=== PATIENT | female | born 1945 ===

== ENCOUNTER 2016-05-15 08:48 | Inpatient (IN) | payer MEDICARE ==
[2016-05-14 07:23] VITALS: BMI 25.0
[2016-05-15] MEDS ORDERED: Lidocaine 2% w Epi 1:100,000 Inj IJ ONE ×2 (11:36→13:41)
[2016-05-15] MEDS ORDERED: Midazolam 2 MG/2 ML VIAL ONE (11:53)
[2016-05-15] MEDS ORDERED: Etomidate 20 mg/10ml Inj IV ONE (11:54)
[2016-05-15] MEDS ORDERED: Neostigmine Methylsulfate 2 MG/2 ML ML IV ONE (11:54)
[2016-05-15] MEDS ORDERED: Rocuronium 10 mg/ml (5 ml) ONE (11:54)
[2016-05-15] MEDS ORDERED: Succinylcholine 200 mg/10 ml Inj IV ONE (11:54)
[2016-05-15] MEDS ORDERED: Lidocaine 4% (Laryng-O-Jet) Kit MM ONE (12:00)
[2016-05-15] MEDS ORDERED: Ropivacaine 0.5% 30ML IV ONE (12:00)
[2016-05-15] MEDS ORDERED: Lactated Ringer's 1,000 ML IV ONE ×2 (15:10→18:00)
[2016-05-15] MEDS ORDERED: Lactated Ringer's 1,000 ML IV SCH (15:15)
--- NOTE | 2016-05-15 15:19 | PCM.ANESB1 ---
Interscalene Block - Brachial Plexus Date of Procedure: 05/15/16 Anesthesiologist: Dr. Basurto Pre-Procedure Diagnosis: S/P right shoulder arthroscopy Post-Procedure Diagnosis: S/P right shoulder arthroscopy Procedure Performed: Interscalene Block of Brachial Plexus Right - Procedure Interscalene Block of Brachial Plexus: This procedure was explained to the patient that it is for post-operative pain management. Consent was obtained after a thorough discussion with the patient regarding the benefits and possible complications of local anesthetic block of the Brachial Plexus at the Interscalene area. The patient was brought to the Operating Room and standard monitors were applied. Time out was held with the circulating nurse to confirm the correct surgery and appropriate block. After the surgery while patient still under anesthesia, the patient's head was gently rotated away from the right operative shoulder and the anterior scalene groove was carefully palpated. The ultrasound transducer was then applied to the skin in the transverse plane and the brachial plexus was visualized lateral to the carotid artery and in between the anterior and middle scalene muscles. After identification,the anterior lateral portion of the neck was prepped with chloraprep solution. At this point, a # 22 gauge Stimuplex 2 inches insulated needle was inserted into the interscalene groove and directed in a caudal and midline direction. The needle was inserted lateral to the ultrasound transducer in-plane towards the brachial plexus in a [id number] direction. Needle advancement was performed carefully under direct ultrasound visualization. Nerve stimulator was used and twitched of the affected extremity including the hand brachialis muscles, biceps and the deltoid was obtained at a current of 0.3MA. After repeated negative aspiration, 5cc of 0.5% ropivacaine was injected and this was followed with 15cc of 0.5% ropivacaine. Under ultrasound guidance the local anesthetics were observed surrounding the roots of the brachial plexus. The needle was removed intact and sterile dressing was applied. The patient had stable vital signs. Anesthesia discontinued, patient extubated and in no apparent distress. The patient tolerated the interscalene block of the bracheal plexus well with stable vital signs and was transported to PACU.
--- NOTE | 2016-05-15 16:58 | PCM.SURG1 ---
Surgeon's Initial Post Op Note - Surgeon's Notes Surgeon: Dr. Radha Johnson Machine Stacker: Jayda Thomas PA-C Type of Anesthesia: General Endo Anesthesia Administered By: Dr. Basurto Pre-Operative Diagnosis: Right Shoulder Full Rotator Cuff Tear,Synovitis, Impingement,Bicep Tenosynovitis Operative Findings: see operative note Post-Operative Diagnosis: same Operation Performed: Right Shoulder Arthroscopy,Rotator Cuff Repair,Bicep's Tenotomy,Complete Synovectomy,Subacromial Decompression and Acromioplasty Specimen/Specimens Removed: none Estimated Blood Loss: EBL {In ML}: 5 Drains Used: No Drains Post-Op Condition: Good Date of Surgery/Procedure: 05/15/16 Time of Surgery/Procedure: 01:20
[2016-05-15] MEDS: Lactated Ringer's 1,000 ML IV SCH (19:00)
--- NOTE | 2016-05-15 19:03 | RAD ---
HISTORY: poor saturation at room air COMPARISON: None available. TECHNIQUE: Chest, one view. FINDINGS: In a [place] limited by habitus. LUNGS: Pulmonary venous congestion. Please note that chest x-ray has limited sensitivity for the detection of pulmonary masses. PLEURA: Small bilateral pleural effusions. No definite pneumothorax . CARDIOVASCULAR: Cardiomegaly. OSSEOUS STRUCTURES: Degenerative changes of the spine and shoulders. Postsurgical changes of the right humeral head. VISUALIZED UPPER ABDOMEN: Elevation of the right hemidiaphragm. OTHER FINDINGS: None. IMPRESSION: Cardiomegaly. Pulmonary venous congestion. Small bilateral pleural effusions.
[2016-05-15 19:55] LABS: BASO # 0.1 K/uL (0.0-0.2); BASO % 0.9 % (0.0-2.0); EOS # 0.8 K/uL (0.0-0.7); EOS % 9.3 % (0.0-4.0); HEMATOCRIT 32.2 % (34.0-47.0); LYMPH # 1.4 K/uL (1.0-4.3); LYMPH % 16.7 % (20.0-40.0); MEAN CELL VOLUME 97.5 fl (81.0-99.0); MEAN CORPUSCULAR HEMOGLOBIN 31.9 pg (27.0-31.0); MEAN CORPUSCULAR HGB CONC 32.7 g/dL (33.0-37.0); MEAN PLATELET VOLUME 8.7 fl (7.2-11.7); MONO # 0.8 K/uL (0.0-0.8); MONO % 9.4 % (0.0-10.0); NEUT # 5.3 K/uL (1.8-7.0); NEUT % 63.7 % (50.0-75.0); NRBC % 0.1 % (0.0-0.0); RED CELL DISTRIBUTION WIDTH 14.2 % (11.5-14.5); WHITE BLOOD COUNT 8.3 K/uL (4.8-10.8)
[2016-05-15 20:01] LABS: BLOOD UREA NITROGEN 23 mg/dl (7-17); CALCIUM 8.8 mg/dL (8.4-10.2); CARBON DIOXIDE 24 mmol/L (22-30); CHLORIDE 101 mmol/L (98-107); GFR AFRICAN-AMERICAN > 60; GLUCOSE,RANDOM 192 mg/dL (65-105); POTASSIUM 4.9 MMOL/L (3.6-5.0); SODIUM 134 mmol/l (132-148)
--- NOTE | 2016-05-15 21:12 | CP.PCM.CON ---
History of Present Illness - History of Present Illness History of Present Illness: CC/Reason for consult: hypoxia s/p extubation HPI: This is a 70 y/o female with DM2, HTN, HLD, and ?CAD who went for scheduled R shoulder surgery today. After extubation, she was noted to be hypoxic on RA and slightly SOB, so she was admitted for obs o/n. Patient denies CP/SOB. Denies cough. Only has R shoulder pain at this time. ROS: 14 systems reviewed, negative other than HPI MHx: HTN, HLD, DM2, ?CAD SHx: R shoulder surgery, knee surgery, C-sec Allergies: NKDA Medications: As per medication list Family Hx: Some DM2 in family Social Hx: Lives alone, no tobacco, no EtOH Surrogate: Daughter, contact info on chart Past Patient History - Past Medical History & Family History Past Medical History?: Yes - Past Social History Smoking Status: Never Smoked - CARDIAC Hx Cardiac Disorders: Yes Hx Hypertension: Yes - PULMONARY Hx Respiratory Disorders: No - NEUROLOGICAL Hx Neurological Disorder: Yes Other/Comment: CRAMP BOTH LEG - HEENT Hx HEENT Problems: Yes Hx Cataracts: Yes - RENAL Hx Chronic Kidney Disease: No - ENDOCRINE/METABOLIC Hx Endocrine Disorders: Yes Hx Diabetes Mellitus Type 2: Yes - HEMATOLOGICAL/ONCOLOGICAL Hx Blood Disorders: No - INTEGUMENTARY Hx Dermatological Problems: No - MUSCULOSKELETAL/RHEUMATOLOGICAL Hx Musculoskeletal Disorders: Yes Hx Arthritis: Yes - GASTROINTESTINAL Hx Gastrointestinal Disorders: No - GENITOURINARY/GYNECOLOGICAL Hx Genitourinary Disorders: No - PSYCHIATRIC Hx Psychophysiologic Disorder: No - SURGICAL HISTORY Hx Surgeries: Yes Hx Cataract Extraction: Yes (O.S) Hx Section: Yes (X 1) Hx Musculoskeletal Surgery: Yes (LEFT LEG) - ANESTHESIA Hx Anesthesia: Yes Hx Anesthesia Reactions: No Hx Malignant Hyperthermia: No Has any member of the family had a problem w/ anesthesia?: No Meds Allergies/Adverse Reactions: Allergies Allergy/AdvReac Type Severity Reaction Status Date / Time No Known Allergies Allergy Verified 05/15/16 10:34 - Medications Medications: Current Medications Acarbose (Precose 50 Mg Tab) 50 mg PO TID [facility] Amlodipine Besylate (Norvasc) 10 mg PO DAILY [facility] Atorvastatin Calcium (Lipitor) 40 mg PO DAILY [facility] Glipizide (Glucotrol) 10 mg PO BID [facility] Hydrochlorothiazide (Hydrodiuril) 25 mg PO DAILY [facility] Lactated Ringer's (Lactated Ringer's) 1,000 mls @ 20 mls/hr IV .Q24H [facility] Insulin Human Lispro (Humalog) 0 units SC ACHS [facility] PRN Reason: Protocol Metformin HCl (Glucophage) 1,000 mg PO BID [facility] Metoprolol Tartrate (Lopressor) 100 mg PO BID [facility] Oxycodone/Acetaminophen (Percocet 5/325 Mg Tab) 2 tab PO Q4 PRN PRN Reason: Pain, moderate (4-7) Stop: 05/18/16 16:55 Valsartan (Diovan) 320 mg PO DAILY [facility] Physical Exam - Constitutional Appears: No Acute Distress - Head Exam Head Exam: ATRAUMATIC, NORMOCEPHALIC - Eye Exam Eye Exam: EOMI, PERRL - ENT Exam ENT Exam: Mucous Membranes Moist - Neck Exam Neck exam: Positive for: Full Rom - Respiratory Exam Respiratory Exam: NORMAL BREATHING PATTERN Additional comments: some crackles at base b/l - Cardiovascular Exam Cardiovascular Exam: REGULAR RHYTHM, +S1, +S2 - GI/Abdominal Exam GI & Abdominal Exam: Normal Bowel Sounds, Soft - Extremities Exam Additional comments: R shoulder in dressing/sling post-op - Neurological Exam Neurological exam: Alert, CN II-XII Intact, Oriented x3 - Psychiatric Exam Psychiatric exam: Normal Affect, Normal Mood - Skin Skin Exam: Dry, Warm Results - Vital Signs Recent Vital Signs: Last Vital Signs Temp 99.2 F 05/15/16 20:30 Pulse 74 05/15/16 20:30 Resp 20 05/15/16 20:30 BP 162/68 H 05/15/16 20:30 Pulse Ox 95 05/15/16 20:30 - Labs Result Diagrams: 05/15/16 19:45 05/15/16 19:45 Labs: Laboratory Results - last 24 hr 05/15/16 05/15/16 09:55 19:45 WBC 8.3 RBC 3.31 L Hgb 10.5 L Hct 32.2 L MCV 97.5 MCH 31.9 H MCHC 32.7 L RDW 14.2 Plt Count 154 MPV 8.7 Neut % (Auto) 63.7 Lymph % (Auto) 16.7 L [place] % (Auto) 9.4 Eos % (Auto) 9.3 H Baso % (Auto) 0.9 Neut # 5.3 Lymph # 1.4 [place] # 0.8 Eos # 0.8 H Baso # 0.1 Sodium 134 Potassium 4.9 Chloride 101 Carbon Dioxide 24 Anion Gap 13 BUN 23 H Creatinine 0.9 Est GFR ( Amer) > 60 Est GFR (Non-Af Amer) > 60 POC Glucose (mg/dL) 205 H Random Glucose 192 H Calcium 8.8 NT-Pro-B Natriuret Pep 2820 H - EKG Data EKG comments: Pending - Imaging and Cardiology Chest x-ray Status: Image reviewed by me, Report reviewed by me (Volume o/l) Assessment & Plan (1) Volume overload Assessment and Plan: 70 y/o female with hypoxia on RA post op. Found to have pulmonary vascular congestion and elevated BNP. Would want to r/o undiagnosed CHF or ACS intra/ post op. -On tele, EKG now -Serial trops -Echo in AM -Lasix 40 mg IV now -BP and DM2 mgmt. as per current orders; SSI added to regimen -DVT PPx per primary team Status: Acute (2) CAD (coronary artery disease) Status: Acute (3) DM2 (diabetes mellitus, type 2) Status: Acute (4) HTN (hypertension) Status: Acute
[2016-05-15] MEDS: Insulin Lispro (humaLOG) 100 Units/ml Inj SC SCH (22:19)
[2016-05-15] MEDS: Oxycodone/Acetaminophen 5/325 mg Tab PO PRN (22:23)
[2016-05-16] MEDS: Oxycodone/Acetaminophen 5/325 mg Tab PO PRN ×2 (05:28→13:34)
[2016-05-16] MEDS: Insulin Lispro (humaLOG) 100 Units/ml Inj SC SCH ×4 (06:44→21:58)
--- NOTE | 2016-05-16 07:42 | CARD ---
APPROVED REPORT EKG Measurement Heart [id number] <Conclusion> Normal sinus rhythm Left axis deviation Left bundle branch block Abnormal ECG
--- NOTE | 2016-05-16 08:05 | OP ---
PROCEDURE DATE: 05/15/2016 DATE OF OPERATION: 05/15/2016. ATTENDING PHYSICIAN: Radha Johnson MD ASSISTANTS: Jayda Thomas PA-C PREOPERATIVE DIAGNOSES: 1. Right shoulder full-thickness rotator cuff tear. 2. Synovitis. 3. Biceps tenosynovitis. 4. Impingement. POST- OPERATIVE DIAGNOSES: 1. Right shoulder full-thickness rotator cuff tear. 2. Extensive synovitis. 3. Biceps tenosynovitis. 4. Type 3 SLAP tear. 5. Subacromial bursitis. 6. Impingement. ANESTHESIA: General. PROCEDURE: 1. Right shoulder arthroscopic rotator cuff repair. 2. Subacromial decompression with acromioplasty. 3. Complete synovectomy. 4. Biceps tenotomy. EBL: 10 mL. SPECIMENS:None. CLOSURE: Primary FLUIDS: See anesthesia sheet ANTIBIOTICS: See anesthesia sheet COMPLICATIONS: None. Indications: After failing a course of non-operative therapy, the patient elected to undergo the abo ve procedures. In the office the risks and possible complications of the shoulder arthroscopy were d iscussed in detail with the patient. These risks include, but are not limited to: continued pain, la ck of motion, infection, vascular injury, and nerve injury including axillary nerve dysfunction, refl ex sympathetic dystrophy, compartment syndrome, limb loss, and . The patient expressed an understanding of the risks and possible benefits of the procedure, and was a lso made aware of the alternatives to surgery. An informed consent was obtained, and was checked imm ediately pre-op. Procedure 1: The patient was correctly identified in the holding area and the right shoulder was mar ked with the surgeon's initials. The patient was transported to the operating room and placed in the supine position and general anesthesia was obtained with regional interscalene block. A preoperative orthopedic examination revealed a passive range of motion of 170 degrees of forward elevation, 70 de grees of external rotation, and 150 degrees of abduction. Stability examination revealed: No instabi lity was noted. Examination of the glenohumeral joint revealed: 1. Full-thickness supraspinatus tear. 2. Extensive synovitis. 3. Biceps tenosynovitis. 4. A type 3 SLAP tear. Upon careful arthroscopic evaluation of biceps tendon and its anchor site at the labrum, it was noted to be highly frayed and tears not amenable to repair. Due to tissue quality and patient's age, decis ion was made to proceed with Biceps tenotomy. Using arthroscopic scissors, biceps tenotomy was succes sfully performed. The loose edges of labrum were debrided using radiofrequency probe and arthroscopic shaver. Excessive glenohumeral synovitis was cleared with a 4.0 mm full radius shaver. The hypertrophic, eryt hematous synovium was resected, hemostasis was maintained with the radiofrequency device. Examination of the subacromial space revealed: 1. Full-thickness supraspinatus tear. 2. Impingement. 3. Bursitis. Visualization of the subacromial space was difficult due to excessive bursitis. A bursectomy was perf ormed using a combination of radiofrequency device as well as a 4.0-mm full radius motorized shaver. The soft tissue on the undersurface of the acromion was debrided utilizing the 4.0 mm full radius sha vince and the radiofrequency device was used for hemostasis. At this point, the coracoacromial ligament was released, with the radiofrequency device, and the acromial branch of the thoracoacromial artery was coagulated with the same instrument. Sub-acromial decompression was performed with a 4.0 mm joseph leena murtaza using both the medial portal and the "cutting-block" precision acromioplasty technique from the posterior portal. The undersurface of the acromion was resected to a flat, smooth surface to all ow unrestricted excursion of the rotator cuff. After adequate subacromial decompression, attention was then turned to the rotator cuff tear, which w as easily visualized after adequate bursectomy had been performed. An auxiliary lateral portal was p laced 2 cm posterior to the original lateral portal, after a correct "-man's angle" was determine d using a trans-deltoid 21 gauge spinal needle. Arthroscopic soft tissue releases were performed usi ng an elevator at the coracohumeral ligament insertion and superior glenoid to free up the rotator cu ff to provide adequate excursion to support a repair to the greater tuberosity. Next, the greater tu berosity was gently debrided with a combination of the 4.0 mm straight shaver and radiofrequency anya ce, and the bone was denuded to a bleeding surface using the 4.0 mm murtaza. The lateral margin of the rotator cuff tear was debrided to a smooth and stable tendon surface using the 4.0 mm shaver. Two 4. 5 mm Arthrex corkscrew suture anchors were placed with the proper " man's angle" into the greater tuberosity, and a mattress suture from each anchor was passed through supraspinatus 10mm medial to t he torn edge. These anchors formed the medial row of the double row repair. The arm was abducted to 70 degrees, and the leading edge of the cuff was drawn to its proper insertion on the greater tubero sity. The #2 FiberWire mattress sutures were tied with standard arthroscopic knot tying techniques - Abraham knots and half hitches using a knot pusher. The remaining sutures were secured to the tuber osity with two 4.5 mm Push-lock absorbable anchors, which were placed with standard technique into th e lateral aspect of the greater tuberosity approximately 1cm lateral to the medial row anchors. One suture strand from each knot was crossed to the diagonal Push-lock anchor along with the suture stran d from the corresponding anchor directly medial. This linking of the medial and lateral row formed a "suture bridge" rotator cuff repair. The ends of the remaining sutures were then cut. The shoulder was put through a passive ROM, and the rotator cuff repair was noted to be stable through a ROM of 1 30/50. No prominence of the suture knots or of rotator cuff tissue was noted to impinge during abduc tion and internal rotation. The subacromial space was then irrigated with sterile saline, and closure was instituted with sutures . A dressing was placed consisting of Xeroform, 4 x 4's, ABD pads, and tape. The patient was placed in a sling with an ABD pad in the axilla. The patient was then placed in a supine position and extubated without incident. The patient was tra nsferred to the recovery room in stable condition, having tolerated the procedure well. Post-operatively, the patient will be maintained in an abduction sling. Also, provided with my rehab protocol, defining the restriction and sling use for 6-8 weeks. During this procedure, I was assisted by Jayda Thomas PA-C, who assisted in positioning the patient on the operating room table as well as transferring the patient from the operating room tabl e to the recovery room stretcher. In addition, Jayda Thomas PA-C, assisted me during the a ctual operative procedure by positioning the patient's extremity to allow for easier arthroscopic acc ess to all areas of the joint. The presence of Jayda Thomas PA-C, as my operative assistan t was medically necessary to ensure the utmost safety of the patient in the pre, intra-, and post-ope rative periods. Radha Johnson MD cc: [id number] TT: 05/15/2016 19:40:10 dn
[2016-05-16] MEDS ORDERED: Patient's Own Med (Valsartan/Hydrochlorothiazide [Valsartan-Hctz 320-25 Mg Tab] 1 TAB) PO SCH (09:00)
--- NOTE | 2016-05-16 13:50 | CP.PCM.CON ---
History of Present Illness - History of Present Illness History of Present Illness: Hospitalist Consult Progress Note (Patient was seen with Daughter Caroline present and who helped to translate at 1:30 PM 05/16/16 in 416-1) Patient underwent Right Rotator Cuff repair on 05/15/16. After extubation she had an episode of Hypoxia and therefore Hospitalist Medicine Service was consulted. Chest X Ray 05/15/16 showed evidence of Pulmonary Vascular Congestion and Cardiomegaly. EKG showed NSR with LBBB and Left [place] Deviation. She was given Lasix 40 mg IV x 1 dose last night 05/15/16. Echocardiogram was performed and results are pending. ProBNP is elevated at 2,820. She has a history of DM 2 , HTN, HLD but is unaware of any CAD. However, Daughter Caroline reveals patient was sent for Stress Test at [place] by PMD roughly 1 month ago and that the patient has history of Bundle Branch Block as per her PMD DR. Holloway but she is not followed regularly by a Polysomnograph Tech. Patient also revealed that for the past 1 year now she has been experiencing Shortness of breath that has been worsening. I explained to patient and Daughter, that considering the above and the fluid administration prior to/during the surgery, Heart Failure is suspected and that I would recommend Cardiology evaluation prior to patient being discharged and they are agreeable. In the interest of progressing patient care I have already spoken with Polysomnograph Tech Dr. Colette Mckinnon who is electrical electronics engineer. I have left a message for Primary Attending Dr. Johnson's office to give me a call back on my cell to discuss this patient's care. Currently upon FULL ROS patient states that the Right Shoulder Pain is present but controlled on pain medication. There is NO chest pain, NO palpitations, NO SOB/Cough/Wheezing, NO soreness in throat, NO abdominal pain, NO n/v/d/c, NO burning/pain with urination (complained of excessive urination during the night and this morning but I explained that this was because of the Lasix that was given to her), NO lightheadedness/dizziness, NO headaches, NO new changes in vision/eye pain, NO new changes in hearing/ear pain, NO paresthesias. HEENT: EOMI, PERRLA, NCA, NO cervical lymphadenopathy, NO thyromegaly, NO pharyngeal erythema/exudate, Oral Mucosa and Nasal Turbinates are moist Cardiology: NS1 and NS2, NO M/R/G Respiratory: Bilateral Basilar Inspiratory Crackles GI: BS x 4, Soft, Central Obesity, NO HSM, NO guarding/rebound tenderness EXT: NO edema, Pulses are strong and equal, Capillary Refill is 2 seconds Neuro: CN II through XII are grossly intact Assessment and Plan: 1). Right Rotator Cuff Repair POD #1 Care as per Orthopedics 2). Questionable Heart Failure/Hx of LBBB Please see discussion in the HPI above Troponins are negative Her Oxygen Saturation is 99% on RA and there are NO signs of Respiratory Distress as patient is speaking in full sentences and there is NO accessory muscles use F/U Cardiology Dr. Mckinnon recommendations F/U 2D Echocardiogram report 3). DM 2 Metformin 1,0000 mg PO 2x/day Glucotrol 10 mg PO 2x/day Acarbose 50 mg PO 3x/day Lispro ISS with Accuchecks 4). HTN Norvasc 10 mg PO 1x/day Lopressor 100 mg PO 2x/day HCTZ 25 mg PO 2x/day Valsartan 320 mg PO 1x/day 5). HLD Lipitor 40 mg PO 1x/day 5). Prophylaxis Zofran 4 mg IV Q6H PRN N/V Percocet 5/325 mg 2 tab PO Q4H PRN Moderate Pain Protonix 40 mg PO 1x/day Past Patient History - Past Medical History & Family History Past Medical History?: Yes - Past Social History Smoking Status: Never Smoked - CARDIAC Hx Cardiac Disorders: Yes Hx Hypertension: Yes - PULMONARY Hx Respiratory Disorders: No - NEUROLOGICAL Hx Neurological Disorder: Yes Other/Comment: CRAMP BOTH LEG - HEENT Hx HEENT Problems: Yes Hx Cataracts: Yes - RENAL Hx Chronic Kidney Disease: No - ENDOCRINE/METABOLIC Hx Endocrine Disorders: Yes Hx Diabetes Mellitus Type 2: Yes - HEMATOLOGICAL/ONCOLOGICAL Hx Blood Disorders: No - INTEGUMENTARY Hx Dermatological Problems: No - MUSCULOSKELETAL/RHEUMATOLOGICAL Hx Musculoskeletal Disorders: Yes Hx Arthritis: Yes - GASTROINTESTINAL Hx Gastrointestinal Disorders: No - GENITOURINARY/GYNECOLOGICAL Hx Genitourinary Disorders: No - PSYCHIATRIC Hx Psychophysiologic Disorder: No - SURGICAL HISTORY Hx Surgeries: Yes Hx Cataract Extraction: Yes (O.S) Hx Section: Yes (X 1) Hx Musculoskeletal Surgery: Yes (LEFT LEG) - ANESTHESIA Hx Anesthesia: Yes Hx Anesthesia Reactions: No Hx Malignant Hyperthermia: No Has any member of the family had a problem w/ anesthesia?: No Meds Allergies/Adverse Reactions: Allergies Allergy/AdvReac Type Severity Reaction Status Date / Time No Known Allergies Allergy Verified 05/15/16 10:34 - Medications Medications: Current Medications Acarbose (Precose 50 Mg Tab) 50 mg PO TID [facility] Last Admin: 05/16/16 12:21 Dose: 50 mg Amlodipine Besylate (Norvasc) 10 mg PO DAILY [facility] Last Admin: 05/16/16 08:44 Dose: 10 mg Atorvastatin Calcium (Lipitor) 40 mg PO DAILY [facility] Last Admin: 05/16/16 08:44 Dose: 40 mg Glipizide (Glucotrol) 10 mg PO BID [facility] Last Admin: 05/16/16 08:43 Dose: 10 mg Hydrochlorothiazide (Hydrodiuril) 25 mg PO DAILY [facility] Last Admin: 05/16/16 08:44 Dose: 25 mg Lactated Ringer's (Lactated Ringer's) 1,000 mls @ 20 mls/hr IV .Q24H [facility] Last Admin: 05/15/16 19:00 Dose: 20 mls/hr Insulin Human Lispro (Humalog) 0 units SC ACHS [facility] PRN Reason: Protocol Last Admin: 05/16/16 12:21 Dose: 2 unit Metformin HCl (Glucophage) 1,000 mg PO BID [facility] Last Admin: 05/16/16 08:43 Dose: 1,000 mg Metoprolol Tartrate (Lopressor) 100 mg PO BID [facility] Last Admin: 05/16/16 08:43 Dose: 100 mg Ondansetron HCl (Zofran Inj) 4 mg IVP Q6 PRN PRN Reason: Nausea/Vomiting Last Admin: 05/16/16 09:49 Dose: 4 mg Oxycodone/Acetaminophen (Percocet 5/325 Mg Tab) 2 tab PO Q4 PRN PRN Reason: Pain, moderate (4-7) Stop: 05/18/16 16:55 Last Admin: 05/16/16 13:34 Dose: 2 tab Valsartan (Diovan) 320 mg PO DAILY [facility] Last Admin: 05/16/16 08:42 Dose: 320 mg Results - Vital Signs Recent Vital Signs: Last Vital Signs Temp 97.3 F L 05/16/16 12:30 Pulse 70 05/16/16 12:30 Resp 20 05/16/16 12:30 BP 166/63 H 05/16/16 12:30 Pulse Ox 96 05/16/16 12:30 - Labs Result Diagrams: 05/15/16 19:45 05/15/16 19:45 Labs: Laboratory Results - last 24 hr 05/15/16 05/15/16 05/15/16 18:21 19:45 21:30 WBC 8.3 RBC 3.31 L Hgb 10.5 L Hct 32.2 L MCV 97.5 MCH 31.9 H MCHC 32.7 L RDW 14.2 Plt Count 154 MPV 8.7 Neut % (Auto) 63.7 Lymph % (Auto) 16.7 L [place] % (Auto) 9.4 Eos % (Auto) 9.3 H Baso % (Auto) 0.9 Neut # 5.3 Lymph # 1.4 [place] # 0.8 Eos # 0.8 H Baso # 0.1 Sodium 134 Potassium 4.9 Chloride 101 Carbon Dioxide 24 Anion Gap 13 BUN 23 H Creatinine 0.9 Est GFR ( Amer) > 60 Est GFR (Non-Af Amer) > 60 POC Glucose (mg/dL) 210 H Random Glucose 192 H Calcium 8.8 Troponin I < 0.0120 NT-Pro-B Natriuret Pep 2820 H 05/15/16 05/16/16 05/16/16 21:59 05:14 06:40 WBC RBC Hgb Hct MCV MCH MCHC RDW Plt Count MPV Neut % (Auto) Lymph % (Auto) [place] % (Auto) Eos % (Auto) Baso % (Auto) Neut # Lymph # [place] # Eos # Baso # Sodium Potassium Chloride Carbon Dioxide Anion Gap BUN Creatinine Est GFR ( Amer) Est GFR (Non-Af Amer) POC Glucose (mg/dL) 237 H 185 H Random Glucose Calcium Troponin I < 0.0120 NT-Pro-B Natriuret Pep 05/16/16 11:18 WBC RBC Hgb Hct MCV MCH MCHC RDW Plt Count MPV Neut % (Auto) Lymph % (Auto) [place] % (Auto) Eos % (Auto) Baso % (Auto) Neut # Lymph # [place] # Eos # Baso # Sodium Potassium Chloride Carbon Dioxide Anion Gap BUN Creatinine Est GFR ( Amer) Est GFR (Non-Af Amer) POC Glucose (mg/dL) 218 H Random Glucose Calcium Troponin I NT-Pro-B Natriuret Pep
[2016-05-16] MEDS: Lactated Ringer's 1,000 ML IV SCH (20:00)
--- NOTE | 2016-05-16 23:34 | CON ---
DATE: 05/16/2016 REASON FOR CONSULTATION: Congestive heart failure and EKG evidence of left bundle branch block . HISTORY OF PRESENT ILNESS: The patient is a 70-year-old female who has history of hypertens ion and diabetes mellitus. The patient underwent an arthroscopic right shoulder surgery and subseque ntly developed CHF after receiving IV fluid infusion. According to the patient, the patient was eval uated by her own event crew technician at [facility] and was cleared for the surgery. The patient denie s any retrosternal chest pain and is unaware of any history of heart attack in the past. SOCIAL HISTORY: Nonsmoker, nondrinker. MEDICATIONS: Diovan 320 mg once a day, Glucophage 1 gram twice a day, glipizide 10 mg twice a day, h ydrochlorothiazide 25 mg daily, Lipitor 40 mg once a day, Lopressor 100 mg twice a day, Norvasc 10 mg once a day, Protonix 40 mg p.o. once a day, Zofran 4 mg intravenous q. 6 hours p.r.n. PHYSICAL EXAMINATION: GENERAL: The patient is an elderly female who does not appear to be in any distress. VITAL SIGNS: Blood pressure 132/68, heart rate 63, temperature 98, respiration 20. HEENT: Pale conjunctivae. NECK: No JVD. CHEST: Minimal right basilar crackles. HEART: S1, S2 regular. ABDOMEN: Soft. EXTREMITIES: No edema. LABORATORY DATA: CBC: WBC 8.3, hemoglobin 10.5, hematocrit 32.2, platelet count 154,000. Three set s of troponins are negative. SMA-7: Sodium 134, potassium 4.9, chloride 101, CO2 24, glucose 192. BUN 23, creatinine 0.9. ProBNP is 2820. EKG revealed sinus left bundle branch block. ASSESSMENT: 1. Congestive heart failure. 2. Abnormal EKG with evidence of left bundle branch block. Myocardial infarction is ruled out. 3. Hypertension and uncontrolled diabetes mellitus. RECOMMENDATIONS: Continue Diovan at 320 mg once a day, hydrochlorothiazide 25 mg once a day, Lipitor 40 mg once a day, hold Lopressor for now. Start Lasix at 40 mg intravenous once a day with K-Dur 20 mEq once a day. I will review the echocardiographic study performed today. Jaswant Mckinnon MD cc: [id number] TT: 05/16/2016 23:33:31 Confirmation # [id number] Dictation # [id number] mn
[2016-05-17] MEDS: Oxycodone/Acetaminophen 5/325 mg Tab PO PRN ×3 (03:03→19:58)
[2016-05-17] MEDS: Insulin Lispro (humaLOG) 100 Units/ml Inj SC SCH ×4 (07:03→22:00)
[2016-05-17 07:30] LABS: MAGNESIUM 1.7 MG/DL (1.6-2.3); POTASSIUM 4.3 MMOL/L (3.6-5.0)
[2016-05-17 07:34] LABS: BILIRUBIN,TOTAL 0.4 mg/dl (0.2-1.3)
[2016-05-17 07:35] LABS: TOTAL PROTEIN 7.2 G/DL (6.3-8.2)
[2016-05-17 07:37] LABS: ALB/GLOB RATIO 1.3 (1.0-2.1)
[2016-05-17 07:45] LABS: BASO % 0.5 % (0.0-2.0); EOS # 0.7 K/uL (0.0-0.7); EOS % 10.6 % (0.0-4.0); HEMATOCRIT 35.3 % (34.0-47.0); LYMPH # 1.7 K/uL (1.0-4.3); LYMPH % 24.2 % (20.0-40.0); MEAN CELL VOLUME 98.1 fl (81.0-99.0); MEAN CORPUSCULAR HEMOGLOBIN 31.8 pg (27.0-31.0); MEAN CORPUSCULAR HGB CONC 32.5 g/dL (33.0-37.0); MEAN PLATELET VOLUME 9.5 fl (7.2-11.7); MONO # 0.8 K/uL (0.0-0.8); MONO % 11.8 % (0.0-10.0); NEUT # 3.7 K/uL (1.8-7.0); NEUT % 52.9 % (50.0-75.0); RED CELL DISTRIBUTION WIDTH 13.8 % (11.5-14.5)
--- NOTE | 2016-05-17 08:01 | CARD ---
APPROVED REPORT EXAM: Two-dimensional and M-mode echocardiogram with Doppler and color Doppler. Other Information Quality : GoodRhythm : NSR INDICATION Congestive Heart Failure 2D DIMENSIONS IVSd0.92 (0.7-1.1cm)LVDd4.89 (3.9-5.9cm) LVOT Diameter1.78 (1.8-2.4cm)PWd0.90 (0.7-1.1cm) IVSs0.78 (0.8-1.2cm)LVDs4.14 (2.5-4.0cm) FS (%) 15.4 %PWs0.96 (0.8-1.2cm) M-Mode DIMENSIONS Left Atrium (MM)3.34 (2.5-4.0cm)IVSd0.74 (0.7-1.1cm) Aortic Root3.23 (2.2-3.7cm)LVDd5.21 (4.0-5.6cm) Aortic Cusp Exc.1.93 (1.5-2.0cm)PWd0.91 (0.7-1.1cm) IVSs1.10 cmFS (%) 28 % LVDs3.75 (2.0-3.8cm)PWs1.19 cm Mitral Valve MV E Jocqbtww47.2cm/sMV DECEL [id number] A Jquobwsh780.3cm/s MV GWV69arT/A ratio0.6MVA (PHT)2.54cm2 TDI Lateral E' Peak V4.16cm/sMedial E' Peak V3.34cm/sE/Lateral E'19.3 E/Medial E'24.0 Pulmonary Valve PV Peak Uwouryfq721.7cm/s LEFT VENTRICLE The left ventricle is normal size. There is normal left ventricular wall thickness. Left ventricle systolic function is moderately to severely impaired. The Ejection Fraction is <25%. There was moderate to severe generalised hypokinesia Transmitral Doppler flow pattern is Grade I-abnormal relaxation pattern. RIGHT VENTRICLE The right ventricle is normal size. There is normal right ventricular wall thickness. The right ventricular systolic function is normal. ATRIA The left atrium size is normal. The right atrium size is normal. AORTIC VALVE The aortic valve is normal in structure and function. No aortic regurgitation is present. There is no aortic valvular stenosis. MITRAL VALVE The mitral valve is normal in structure. There is no evidence of mitral valve prolapse. There is no mitral valve stenosis. Mitral regurgitation is trace. TRICUSPID VALVE The tricuspid valve is normal in structure and function. There is no tricuspid valve regurgitation noted. PULMONIC VALVE The pulmonary valve is normal in structure and function. There is no pulmonic valvular regurgitation. GREAT VESSELS The aortic root is normal in size. The IVC was not visualized. PERICARDIAL EFFUSION The pericardium appears normal. <Conclusion> The left ventricle is normal size. There is normal left ventricular wall thickness. There was moderate to severe generalised hypokinesia Left ventricle systolic function is moderately to severely impaired. The Ejection Fraction is <25%. Transmitral Doppler flow pattern is Grade I-abnormal relaxation pattern.
[2016-05-17] MEDS: Potassium Chloride 20 mEq ER Tab PO SCH (10:07)
--- NOTE | 2016-05-17 11:05 | CP.PCM.CON ---
History of Present Illness - History of Present Illness History of Present Illness: Hospitalist Consult Note (Patient was seen and examined at 10:50 AM 05/17/16 in 416-1) Patient underwent Right Rotator Cuff repair on 05/15/[address] Johnson. After extubation she had an episode of Hypoxia and therefore Hospitalist Medicine Service was consulted. Chest X Ray 05/15/16 showed evidence of Pulmonary Vascular Congestion and Cardiomegaly. EKG showed NSR with LBBB and Left [place] Deviation. She was given Lasix 40 mg IV x 1 dose on night of 05/15/16. ProBNP is elevated at 2,820. She has a history of DM 2, HTN, HLD but is unaware of any CAD. However, Daughter Caroline [phone] reveals patient was sent for Stress Test at [place] (performed by [employer] Dr. Lake however, I could not find a record of this) by PMD Dr. Holloway roughly 1 month ago and that the patient has history of Bundle Branch Block. Patient is currently not followed by an [employer] as an outpatient on a regular basis. Patient also revealed that for the past 1 year now she has been experiencing Shortness of breath that has been worsening. It was explained to patient and Daughter, that considering the above and the fluid administration prior to/during the surgery, Heart Failure is suspected. In the interest of progressing patient care I have already spoken with [employer] Dr. Colette Mckinnon who was quality control systems manager. 2D Echocardiogram revealed moderate to severe generalized hypokinesis with LV function severely impaired with EF estimated at 25%. I left a message with Dr. Johnson's office [phone] to update him. I spoke with his PA Jayda Donahue and updated her on 05/17/16 and she will convey information to Dr. Johnson. Currently upon FULL ROS patient states that the Right Shoulder Pain is present but controlled on pain medication. This pain is described as a pulsating pain. that comes and goes. There is NO chest pain, NO palpitations, NO SOB/Cough/ Wheezing, NO soreness in throat, NO abdominal pain, NO n/v/d/, (+) Constipation : NO bowel movement since this past Saturday, NO burning/pain with urination , NO lightheadedness/dizziness, NO headaches, NO new changes in vision/eye pain, NO new changes in hearing/ear pain, NO paresthesias. HEENT: EOMI, PERRLA, NCA, NO cervical lymphadenopathy, NO thyromegaly, NO pharyngeal erythema/exudate, Oral Mucosa and Nasal Turbinates are moist Cardiology: NS1 and NS2, Systolic Ejection Murmur heard best along left sternal border Respiratory: Bilateral Basilar Inspiratory Crackles still present GI: BS x 4, Soft, Central Obesity, NO HSM, NO guarding/rebound tenderness EXT: NO edema, Pulses are strong and equal, Capillary Refill is 2 seconds Neuro: CN II through XII are grossly intact Assessment and Plan: 1). Right Rotator Cuff Repair POD #2 PT/OT ordered Care as per Orthopedics 2). Systolic Heart Failure Exacerbation/Hx of LBBB Please see discussion in the HPI above Troponins are negative I spoke with Dr. Mckinnon 3 and went over the 2D Echocardiogram results. Start Carvedilol 3.125 mg PO Q12H ONCE the bibasilar rales improve Continue Lasix 40 mg IV Q12H, Norvasc 10 mg PO 1x/day, Valsartan 320 mg PO 1x/ day Patient will need outpatient Cardiac Catheterizatoin so will need to follow up with [employer] Dr. Lake upon her discharge 3). DM 2 Metformin 1,0000 mg PO 2x/day Glucotrol 10 mg PO 2x/day Acarbose 50 mg PO 3x/day Lispro ISS with Accuchecks 4). HTN Norvasc 10 mg PO 1x/day Valsartan 320 mg PO 1x/day (HCTZ component was discontinued as patient was started on Lasix 40 mg IV Q12H) Home medication of Lopressor 100 mg PO 1x/day was discontinued: start Carvedilol 3.125 mg PO Q12H once the bibasilar rales improve 5). HLD Lipitor 40 mg PO 1x/day 5). Prophylaxis Zofran 4 mg IV Q6H PRN N/V Percocet 5/325 mg 2 tab PO Q4H PRN Moderate Pain Protonix 40 mg PO 1x/day NO Lovenox for now as per Orthopedics JOVANI Thomas Aspirin 325 mg PO 1x/day KCl 20 mEQ PO 1x/day as patient was started on Lasix Has not had a bowel movement yet and would like to hold off on any stool softners/laxatives for now as she explains that after Pepto Bismol (which she had on Saturday) she gets constipated. If NO bowel movement by 05/18/16 then order Senokot. Patient stated that she had enough of her home medications of Norvasc, Simvastatin, Metformin, Glipizide, Acarbose. So when ready for discharge Medicine Team will need to provide Rx for Carvedilol, Rx for Valsartan without the HCTZ component, instruct her not to take the Lopressor. We will need Cardiac Clearance prior to clearing patient for discharge. Past Patient History - Past Medical History & Family History Past Medical History?: Yes - Past Social History Smoking Status: Never Smoked - CARDIAC Hx Cardiac Disorders: Yes Hx Hypertension: Yes - PULMONARY Hx Respiratory Disorders: No - NEUROLOGICAL Hx Neurological Disorder: Yes Other/Comment: CRAMP BOTH LEG - HEENT Hx HEENT Problems: Yes Hx Cataracts: Yes - RENAL Hx Chronic Kidney Disease: No - ENDOCRINE/METABOLIC Hx Endocrine Disorders: Yes Hx Diabetes Mellitus Type 2: Yes - HEMATOLOGICAL/ONCOLOGICAL Hx Blood Disorders: No - INTEGUMENTARY Hx Dermatological Problems: No - MUSCULOSKELETAL/RHEUMATOLOGICAL Hx Musculoskeletal Disorders: Yes Hx Arthritis: Yes - GASTROINTESTINAL Hx Gastrointestinal Disorders: No - GENITOURINARY/GYNECOLOGICAL Hx Genitourinary Disorders: No - PSYCHIATRIC Hx Psychophysiologic Disorder: No - SURGICAL HISTORY Hx Surgeries: Yes Hx Cataract Extraction: Yes (O.S) Hx Section: Yes (X 1) Hx Musculoskeletal Surgery: Yes (LEFT LEG) - ANESTHESIA Hx Anesthesia: Yes Hx Anesthesia Reactions: No Hx Malignant Hyperthermia: No Has any member of the family had a problem w/ anesthesia?: No Meds Allergies/Adverse Reactions: Allergies Allergy/AdvReac Type Severity Reaction Status Date / Time No Known Allergies Allergy Verified 05/15/16 10:34 - Medications Medications: Current Medications Acarbose (Precose 50 Mg Tab) 50 mg PO TID [facility] Last Admin: 05/17/16 10:10 Dose: 50 mg Amlodipine Besylate (Norvasc) 10 mg PO DAILY [facility] Last Admin: 05/17/16 10:08 Dose: 10 mg Atorvastatin Calcium (Lipitor) 40 mg PO DAILY [facility] Last Admin: 05/17/16 10:08 Dose: 40 mg Furosemide (Lasix) 40 mg IV BID [facility] Last Admin: 05/17/16 10:08 Dose: 40 mg Glipizide (Glucotrol) 10 mg PO BID [facility] Last Admin: 05/17/16 10:07 Dose: 10 mg Hydrochlorothiazide (Hydrodiuril) 25 mg PO DAILY [facility] Last Admin: 05/17/16 10:07 Dose: 25 mg Insulin Human Lispro (Humalog) 0 units SC ACHS [facility] PRN Reason: Protocol Last Admin: 05/17/16 07:03 Dose: Not Given Metformin HCl (Glucophage) 1,000 mg PO BID [facility] Last Admin: 05/17/16 10:06 Dose: 1,000 mg Ondansetron HCl (Zofran Inj) 4 mg IVP Q6 PRN PRN Reason: Nausea/Vomiting Last Admin: 05/16/16 09:49 Dose: 4 mg Oxycodone/Acetaminophen (Percocet 5/325 Mg Tab) 2 tab PO Q4 PRN PRN Reason: Pain, moderate (4-7) Stop: 05/18/16 16:55 Last Admin: 05/17/16 10:14 Dose: 2 tab Pantoprazole Sodium (Protonix Ec Tab) 40 mg PO DAILY [facility] Potassium Chloride (K-Dur 20 Meq Er Tab) 20 meq PO DAILY [facility] Last Admin: 05/17/16 10:07 Dose: 20 meq Valsartan (Diovan) 320 mg PO DAILY [facility] Last Admin: 05/17/16 10:06 Dose: 320 mg Results - Vital Signs Recent Vital Signs: Last Vital Signs Temp 97.7 F 05/17/16 08:29 Pulse 57 L 05/17/16 10:08 Resp 20 05/17/16 08:29 BP 171/73 H 05/17/16 10:08 Pulse Ox 99 05/17/16 08:29 - Labs Result Diagrams: 05/17/16 06:35 05/17/16 06:35 Labs: Laboratory Results - last 24 hr 05/15/16 05/16/16 05/16/16 18:21 11:18 13:52 WBC RBC Hgb Hct MCV MCH MCHC RDW Plt Count MPV Neut % (Auto) Lymph % (Auto) [place] % (Auto) Eos % (Auto) Baso % (Auto) Neut # Lymph # [place] # Eos # Baso # Sodium Potassium Chloride Carbon Dioxide Anion Gap BUN Creatinine Est GFR ( Amer) Est GFR (Non-Af Amer) POC Glucose (mg/dL) 210 H 218 H Random Glucose Calcium Phosphorus Magnesium Total Bilirubin AST ALT Alkaline Phosphatase Troponin I < 0.0120 Total Protein Albumin Globulin Albumin/Globulin Ratio 05/16/16 05/16/16 05/17/16 16:16 21:31 05:33 WBC RBC Hgb Hct MCV MCH MCHC RDW Plt Count MPV Neut % (Auto) Lymph % (Auto) [place] % (Auto) Eos % (Auto) Baso % (Auto) Neut # Lymph # [place] # Eos # Baso # Sodium Potassium Chloride Carbon Dioxide Anion Gap BUN Creatinine Est GFR ( Amer) Est GFR (Non-Af Amer) POC Glucose (mg/dL) 108 155 H 127 H Random Glucose Calcium Phosphorus Magnesium Total Bilirubin AST ALT Alkaline Phosphatase Troponin I Total Protein Albumin Globulin Albumin/Globulin Ratio 05/17/16 06:35 WBC 7.0 RBC 3.60 L Hgb 11.5 L Hct 35.3 MCV 98.1 MCH 31.8 H MCHC 32.5 L RDW 13.8 Plt Count 162 MPV 9.5 Neut % (Auto) 52.9 Lymph % (Auto) 24.2 [place] % (Auto) 11.8 H Eos % (Auto) 10.6 H Baso % (Auto) 0.5 Neut # 3.7 Lymph # 1.7 [place] # 0.8 Eos # 0.7 Baso # 0.0 Sodium 134 Potassium 4.3 Chloride 97 L Carbon Dioxide 27 Anion Gap 14 BUN 26 H Creatinine 1.1 Est GFR ( Amer) 59 Est GFR (Non-Af Amer) 49 POC Glucose (mg/dL) Random Glucose 148 H Calcium 9.0 Phosphorus 5.0 H Magnesium 1.7 Total Bilirubin 0.4 AST 23 ALT 35 Alkaline Phosphatase 58 Troponin I Total Protein 7.2 Albumin 4.0 Globulin 3.2 Albumin/Globulin Ratio 1.3
--- NOTE | 2016-05-17 14:02 | PN ---
DATE: 05/17/2016 The patient's shortness of breath has improved. The patient has adequate diuresis. PHYSICAL EXAMINATION: VITAL SIGNS: Blood pressure 149/54, heart rate 63, temperature 98.3, respirations 18. HEENT: Normocephalic. NECK: No JVD. CHEST: crackles. HEART: S1, S2 regular. EXTREMITIES: No edema. LABORATORIES: Hemoglobin and hematocrit 11.5 and 35.3, white count and platelet count are within nor mal limit. Today's SMA-7: Sodium 134, potassium 4.3, chloride 97, CO2 27, glucose 148, BUN 26, crea tinine 1.1. Official echocardiograph study report is consistent with normal ventricular size, wall thickness with moderate to severe generalized hypokinesis, ejection fraction estimated below 25% with grade I abnor mal relaxation pattern. ASSESSMENT: 1. Acute systolic congestive heart failure. 2. Left bundle branch block, rule out underlying ischemic cardiomyopathy. 3. Status post right shoulder arthroscopic surgery. 4. Hypertension. 5. Diabetes mellitus. RECOMMENDATIONS: The case was discussed with Dr. Garcia, the education rn. The patient will be mainta ined on Diovan at 320 mg daily, Lasix at 40 mg intravenously twice a day, hydrochlorothiazide 25 mg o nce a day, Lipitor at 40 mg once a day, Norvasc 10 mg once a day. Subcutaneous Lovenox at 40 mg kassandra y at least as a prophylactic dose was recommended if cleared by orthopedic surgeon. The patient even tually will need a cardiac catheterization, which will be discussed with the patient's daughter. Jaswant Mckinnon MD cc: [id number] TT: 05/17/2016 14:01:47 Confirmation # [id number] Dictation # [id number]
[2016-05-17] MEDS: Pantoprazole 40 mg EC Tab PO SCH (20:01)
[2016-05-18] MEDS: Oxycodone/Acetaminophen 5/325 mg Tab PO PRN ×2 (02:53→09:36)
[2016-05-18 07:26] LABS: BASO % 0.5 % (0.0-2.0); CALCIUM 8.9 mg/dL (8.4-10.2); EOS # 0.6 K/uL (0.0-0.7); EOS % 9.4 % (0.0-4.0); HEMATOCRIT 33.7 % (34.0-47.0); LYMPH # 1.8 K/uL (1.0-4.3); LYMPH % 27.8 % (20.0-40.0); MEAN CELL VOLUME 96.7 fl (81.0-99.0); MEAN CORPUSCULAR HEMOGLOBIN 31.8 pg (27.0-31.0); MEAN CORPUSCULAR HGB CONC 32.9 g/dL (33.0-37.0); MONO # 0.8 K/uL (0.0-0.8); MONO % 13.1 % (0.0-10.0); NEUT # 3.1 K/uL (1.8-7.0); NEUT % 49.2 % (50.0-75.0); NRBC % 0.1 % (0.0-0.0); POTASSIUM 4.1 MMOL/L (3.6-5.0); RED CELL DISTRIBUTION WIDTH 13.6 % (11.5-14.5); WHITE BLOOD COUNT 6.4 K/uL (4.8-10.8)
[2016-05-18] MEDS: Insulin Lispro (humaLOG) 100 Units/ml Inj SC SCH ×3 (09:00→17:15)
[2016-05-18] MEDS: Potassium Chloride 20 mEq ER Tab PO SCH (09:30)
[2016-05-18] MEDS: Pantoprazole 40 mg EC Tab PO SCH (09:32)
--- NOTE | 2016-05-18 12:21 | PN ---
DATE: 05/18/2016 The patient denies chest pain. Shortness of breath has improved. PHYSICAL EXAMINATION: VITAL SIGNS: Blood pressure 145/74, heart rate 66, temperature 97.7, respirations 20. HEENT: Normocephalic. NECK: No JVD. CHEST: Minimal right basilar rales. HEART: S1, S2 regular. EXTREMITIES: No edema. LABORATORIES: Hemoglobin and hematocrit 11.1 and 33.7, white count and platelet count are within nor mal limits. Today's BUN and creatinine 31 and 1.4. Glucose is 228, potassium 4.1. ASSESSMENT: 1. Exacerbation of congestive heart failure. 2. Abnormal EKG was evidence of left bundle branch block. Rule out underlying ischemic cardiomyopat hy. 3. Status post right shoulder arthroscopic surgery. 4. Mild prerenal azotemia. 5. Diabetes mellitus. RECOMMENDATIONS: Discontinue both Lasix and K-Dur. Continue Norvasc 10 mg once a day, Diovan at 320 mg once a day. Start Coreg at 3.125 mg twice a day. Jaswant Mckinnon MD cc: [id number] TT: 05/18/2016 12:20:54 Confirmation # [id number] Dictation # [id number]
[2016-05-18 12:35] VITALS: PULSE 71
[2016-05-18 13:44] VITALS: TEMP 98.3
[2016-05-18 16:53] VITALS: BP 102/62; RESP 18; O2SAT 95
--- NOTE | 2016-05-18 19:40 | CP.PCM.PN ---
Subjective - Date & Time of Evaluation Date of Evaluation: 05/18/16 Time of Evaluation: 13:00 - Subjective Subjective: Patient was seen and examined Bedside. Feeling better .Still with pain to Right shoulder but better. Denies any Chest pain, SOB, palpitations. Complains of some pain to left ankle. Hemodynamically stable, afebrile . No acute issues overnight. Objective - Vital Signs/Intake and Output Vital Signs (last 24 hours): Temp Pulse Resp BP Pulse Ox 98.3 F 71 18 102/62 95 05/18/16 16:00 05/18/16 16:00 05/18/16 16:00 05/18/16 16:00 05/18/16 16:00 - Medications Medications: Current Medications Acarbose (Precose 50 Mg Tab) 50 mg PO TID [facility] Last Admin: 05/18/16 17:12 Dose: 50 mg Amlodipine Besylate (Norvasc) 10 mg PO DAILY [facility] Last Admin: 05/18/16 09:31 Dose: 10 mg Aspirin (Aspirin) 325 mg PO DAILY [facility] Last Admin: 05/18/16 09:30 Dose: 325 mg Atorvastatin Calcium (Lipitor) 40 mg PO DAILY [facility] Last Admin: 05/18/16 09:32 Dose: 40 mg Carvedilol (Coreg) 3.125 mg PO Q12 [facility] Last Admin: 05/18/16 12:29 Dose: 3.125 mg Glipizide (Glucotrol) 10 mg PO BID [facility] Last Admin: 05/18/16 17:12 Dose: 10 mg Insulin Human Lispro (Humalog) 0 units SC ACHS [facility] PRN Reason: Protocol Last Admin: 05/18/16 17:15 Dose: 2 unit Metformin HCl (Glucophage) 1,000 mg PO BID [facility] Last Admin: 05/18/16 17:12 Dose: 1,000 mg Ondansetron HCl (Zofran Inj) 4 mg IVP Q6 PRN PRN Reason: Nausea/Vomiting Last Admin: 05/17/16 14:24 Dose: 4 mg Pantoprazole Sodium (Protonix Ec Tab) 40 mg PO DAILY [facility] Last Admin: 05/18/16 09:32 Dose: 40 mg Valsartan (Diovan) 320 mg PO DAILY [facility] Last Admin: 05/18/16 09:30 Dose: 320 mg - Labs Labs: 05/18/16 06:10 05/18/16 06:10 - Constitutional Appears: Non-toxic, No Acute Distress - Head Exam Head Exam: ATRAUMATIC, NORMAL INSPECTION, NORMOCEPHALIC - Eye Exam Eye Exam: EOMI, Normal appearance, PERRL Pupil Exam: NORMAL ACCOMODATION - ENT Exam ENT Exam: Mucous Membranes Moist, Normal Exam - Neck Exam Neck Exam: Full ROM, Normal Inspection - Respiratory Exam Respiratory Exam: Clear to Ausculation Bilateral, NORMAL BREATHING PATTERN. absent: Rales, Rhonchi, Wheezes, Respiratory Distress - Cardiovascular Exam Cardiovascular Exam: REGULAR RHYTHM, RRR, +S1, +S2. absent: JVD - GI/Abdominal Exam GI & Abdominal Exam: Soft, Normal Bowel Sounds. absent: Distended, Guarding, Tenderness, Rebound - Rectal Exam Rectal Exam: Deferred - Extremities Exam Extremities Exam: Normal Capillary Refill, Normal Inspection. absent: Calf Tenderness Additional comments: Right upper extremity into sling, dressing to right shoulder pulses intact warm to touch, capillary refill intact able to move fingers - Back Exam Back Exam: NORMAL INSPECTION - Neurological Exam Neurological Exam: Alert, Awake, CN II-XII Intact, Oriented x3 - Psychiatric Exam Psychiatric exam: Normal Affect - Skin Skin Exam: Dry, Intact, Normal Color, Warm Assessment and Plan - Assessment and Plan (Free Text) Assessment: 70 y/o female with PMH DM , HTN, Dyslipidemia underwent elective Right Rotator Cuff repair on 05/15/[address] Johnson. After extubation post op she had an episode of Hypoxia and therefore Hospitalist Medicine Service was consulted. Chest X Ray 05/15/16 showed evidence of Pulmonary Vascular congestion and patient treated with Lasix IV. Echo showed EF 25 % with severe generalized hypokinesis.Cardiology was consulted At present patient doing well, with no chest pain or SOB. Optimized on medical management by cardiology with beta taniya, ARB. Patient cleared by cardiology for discharge. All results were explained to daughter Patient will need to follow up with in 1 week and with PMD Dr[address] Holloway She will need a stress test as outpatient Counselled daughter on compliance with cardiac diet and fluid restriction Provided prescriptions for Valsartan 320 mg po QD, Coreg 3.125 mg PO Q12, ASA, Statin 1. Right Rotator Cuff Repair s/p elective repair F/u with ortho pain management Care as per Orthopedics 2. Acute Systolic Heart Failure Exacerbation/Hx of LBBB Given Lasix and diuresed well. Will d/c lasix due to YANE Cardio consulted and cleared patient for discharge Echo showed EF 25 % with severe generalized hypokinesis Continue Coreg, Valsartan, ASA, statin Patient will need outpatient Cardiac Catheterizatoin so will need to follow up with [facility] Dr. Lake upon her discharge or Dr. Wong 3.DM 2 controlled Continue home medications 4. HTN controlled D/c HCTZ and lasix due to YANE Started Norvasc 10 mg PO QD, valsartan 320 mg PO qd and Coreg 3.125 mg po q12 Home medication of Lopressor 100 mg PO QD was discontinued 5. HLD Continue Statin 6. YANE Most likely prernal due to diuretic use D/c lasix and HCTZ Patient is medically cleared for discharge Will sign off the case
== END 2016-05-18 18:30 | disposition home or self-care (01) | DRG 500 ==
LOC: H.OPSURG 08:48 → H.TEL 19:19
PROVIDERS: ADMIT Orthopaedic Surgery; ATTEND Orthopaedic Surgery
PROC: 0LQ14ZZ Repair Right Shoulder Tendon, Percutaneous Endoscopic Approach (ICD-10-PCS; 2016-05-15)
PROC: 3E0T3BZ Introduction of Anesthetic Agent into Peripheral Nerves and Plexi, Percutaneous Approach (ICD-10-PCS; 2016-05-15)
PROC: 0RNJ4ZZ Release Right Shoulder Joint, Percutaneous Endoscopic Approach (ICD-10-PCS; principal; 2016-05-15 11:45)
PROC: 0LN14ZZ Release Right Shoulder Tendon, Percutaneous Endoscopic Approach (ICD-10-PCS; 2016-05-15 11:45)
DX: M75.101 Unspecified rotator cuff tear or rupture of right shoulder, not specified as traumatic (principal); I50.21 Acute systolic (congestive) heart failure; N17.9 Acute kidney failure, unspecified; E11.65 Type 2 diabetes mellitus with hyperglycemia; I44.7 Left bundle-branch block, unspecified; M65.9 Synovitis and tenosynovitis, unspecified; M75.51 Bursitis of right shoulder; M75.41 Impingement syndrome of right shoulder; R09.02 Hypoxemia; E78.5 Hyperlipidemia, unspecified; I25.10 Atherosclerotic heart disease of native coronary artery without angina pectoris; K59.00 Constipation, unspecified; T50.1X5A Adverse effect of loop [high-ceiling] diuretics, initial encounter; R79.89 Other specified abnormal findings of blood chemistry; S43.431A Superior glenoid labrum lesion of right shoulder, initial encounter; X58.XXXA Exposure to other specified factors, initial encounter; I11.0 Hypertensive heart disease with heart failure